=== PATIENT | male | born 1995 | race Caucasian/White ===

== ENCOUNTER 2017-08-18 13:52 | Emergency (ER) | payer OTHER ==
[~2017-08-18] VITALS: Ht 190.5 cm; Wt 86.4 kg
[2017-08-18 13:59] VITALS: TEMP 37.1; Ht 190.5 cm; Wt 86.4 kg
--- NOTE | 2017-08-18 14:23 | EMERGENCY ROOM VISIT NOTE ---
History First contact with patient: 14:03 Chief Complaint: CHEST INJURY Stated Complaint: DULL/SHARP CHEST PAIN History of Present Illness The patient is a 22 year old male who presents to the Emergency Room with complaints of chest pain. 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 He was playing handball today and during one of his shots someone made accidental contact with center of his chest. He states that he was able to complete playing the game, but progressively as time went on he began noticing increasing discomfort in his chest. Is complaining of 9/10 dull aching pain in the center of his chest that does not radiate to the back, jaw or arms. The pain is worsened by any deep breathing, and any type of movement. He notes shortness of breath only with deep breathing because of pain in the chest. He does not have any coughing or wheezing. He has not tried any Tylenol or Motrin. Otherwise the patient is been well. He does not have any gastrointestinal symptoms including nausea, vomiting, abdominal pain, diarrhea or constipation. He denies any urinary symptoms including dysuria or urinary frequency. He has not had any fevers chills or night sweats. Review of Systems A 10 point review of systems was negative unless stated above. Past Medical/Surgical History No know medical conditions Family History No known family history Social History Smoking Status: Never Smoker Smokeless Tobacco Use: No Alcohol Use: occasionally Drug Use: none Housing Status: lives with roommate Occupation Status: student ([place] [employer]) Current/Historical Medications No Active Prescriptions or Reported Meds Allergies No known allergies Physical Exam Vital Signs Date Time Temp Pulse Resp B/P (MAP) Pulse Ox O2 Delivery O2 Flow Rate FiO2 08/18/17 15:28 75 16 127/72 98 Room Air 08/18/17 14:40 76 08/18/17 13:59 37.1 87 20 122/71 97 Room Air Pain Rating (0-10): 9 Physical Exam Constitutional: Vital signs as above were reviewed. Eyes: Pupils equal, round, and reactive to light. Extraocular muscles are intact. No proptosis. No photophobia. ENT: Mucous membranes are moist. Oropharynx is clear. No sinus tenderness. Cardiovascular: Heart with a regular rate and rhythm. No pedal edema appreciated. Midsternal chest discomfort to palpation Point tenderness to the left pectoral muscle. No subcutaneous cutaneous crepitus or subcutaneous emphysema There is no evidence of flail chest Respiratory: Lungs clear to auscultation bilaterally. No wheezes, rales, or rhonchi appreciated. No accessory muscle use. No retractions. No increased work of breathing. GI: Abdomen soft, nontender, nondistended. Normal active bowel sounds. No abdominal hernias appreciated. No rebound. No guarding. : No CVA tenderness appreciated. Musculoskeletal: No midline cervical or vertebral tenderness. No gross deformities. No bony tenderness. No calf swelling or tenderness. No other musculoskeletal injuries noted Integumentary: Warm, dry, no rashes appreciated. Neurological: Patient awake, alert, and oriented x 3. Lymph: No cervical lymphadenopathy appreciated. Medical Decision & Procedures ER Provider Diagnostic Interpretation: SINGLE VIEW CHEST CLINICAL HISTORY: Atypical chest pain. FINDINGS: An AP, portable, upright chest radiograph is obtained. No prior studies are available for comparison at the time of dictation. The examination is degraded by portable technique and patient rotation. The cardiomediastinal silhouette is unremarkable. The lungs and pleural spaces are clear. No pneumothorax is seen. The bony thorax is grossly intact. IMPRESSION: No active disease in the chest. Electronically signed by: Camilo Horn M.D. 08/18/2017 2:44 PM Dictated Date/Time: 08/18/2017 2:43 PM The status of this report is Signed. Draft = Not yet reviewed or approved by Radiologist. Signed = Reviewed and approved by Radiologist. CT SCAN OF THE CHEST WITH IV CONTRAST CLINICAL HISTORY: Atypical chest pain. Chest injury. COMPARISON STUDY: Chest x-ray dated 08/18/2017. TECHNIQUE: Following the IV administration of 89 cc of Optiray 320, CT scan of the thorax was performed from the thoracic inlet to the upper abdomen. Images are reviewed in the axial, sagittal, and coronal planes. IV contrast was administered without complication. A dose lowering technique was utilized adhering to the principles of ALARA. CT DOSE: 250.31 mGy.cm FINDINGS: Thyroid: Imaged portions of the thyroid gland are normal in size and attenuation. Thoracic aorta: The thoracic aorta is normal in caliber and demonstrates standard 3-vessel arch anatomy. No dissection is seen. Pulmonary vasculature: The pulmonary trunk is normal in caliber. There are no filling defects identified in the central pulmonary vessels to indicate pulmonary embolus. Note that this examination was not protocoled for evaluation of the pulmonary arteries. Heart: The heart is normal in size and configuration, and without pericardial effusion. Lungs and pleural spaces: The lungs and pleural spaces are clear. There is no pneumothorax. The trachea and central airways are patent Mediastinum: There is no mediastinal hematoma or lymphadenopathy. Lorena: Clear. Axillae: There is no axillary lymphadenopathy. Upper abdomen: Partially visualized upper abdominal viscera is within normal limits. Skeletal structures: The bony thorax appears intact. No lytic or blastic bony lesions are seen. IMPRESSION: 1. There is no acute posttraumatic intrathoracic abnormality. 2. The lungs are clear. Electronically signed by: Camilo Horn M.D. 08/18/2017 3:34 PM Dictated Date/Time: 08/18/2017 3:28 PM The status of this report is Signed. Draft = Not yet reviewed or approved by Radiologist. Signed = Reviewed and approved by Radiologist. Laboratory Results 08/18/17 14:40 08/18/17 14:40 Test 08/18/17 14:40 08/18/17 14:51 Red Blood Count 5.17 M/uL (4.7-6.1) Mean Corpuscular Volume 82.8 fL (80-100) Mean Corpuscular Hemoglobin 28.4 pg (25-34) Mean Corpuscular Hemoglobin Concent 34.3 g/dl (32-36) RDW Standard Deviation 39.0 fL (36.4-46.3) RDW Coefficient of Variation 13.0 % (11.5-14.5) Mean Platelet Volume 9.7 fL (7.4-10.4) Est Creatinine Clear Calc Drug Dose 139.7 ml/min Estimated GFR () 124.1 Estimated GFR (Non- 107.1 BUN/Creatinine Ratio 21.6 (10-20) Calcium Level 9.5 mg/dl (8.5-10.1) Total Creatine Kinase 130 U/L (39-308) Creatine Kinase MB 1.1 ng/ml (0.5-3.6) Creatine Kinase MB Ratio 0.8 (0-3.0) Troponin I < 0.015 ng/ml (0-0.045) Bedside Hemoglobin 14.6 g/dl (14.0-18.0) Bedside Hematocrit 43 % (42-52) Bedside Sodium 142 mEq/L (135-144) Bedside Potassium 4.1 mEq/L (3.3-5.0) Bedside Chloride 102 mEq/L (101-112) Bedside Total CO2 27 mEq/l (24-31) Anion Gap 18.0 mmol/L (16-25) Bedside Blood Urea Nitrogen 24 mg/dl (7-18) Bedside Creatinine 1.1 mg/dl (0.6-1.3) Bedside Glucose (other) 110 mg/dl (70-99) Bedside Ionized Calcium (Jacki) 1.27 mmol/l (1.12-1.32) Medications Administered Medications (Trade) Dose Ordered Sig/Vijaya Route Start Time Stop Time Status Last Admin Dose Admin Ketorolac Tromethamine (Toradol Inj) 30 mg NOW STAT IV 08/18/17 14:32 08/18/17 14:33 DC 08/18/17 14:32 30 MG Hydromorphone HCl (Dilaudid Inj) 1 mg NOW STAT IV 08/18/17 14:32 08/18/17 14:33 DC 08/18/17 14:32 1 MG Ondansetron HCl (Zofran Inj) 4 mg NOW STAT IV 08/18/17 14:32 08/18/17 14:33 DC 08/18/17 14:32 4 MG ED Course Patient is a 22-year-old male who sustained chest wall injury following an accident contact during sports. The concern in this Injury includes sternal fracture, rib fracture, pneumothorax , tension pneumothorax, cardiac contusion, commotio cordis. Chest x-ray was done which did not show any acute findings. CT scan did not show any bony abnormalities, intraparenchymal abnormalities, or intra-pleural abnormalities such as effusions or pneumothorax. Also elected to do a troponin to check for any cardiac damage. Fortunately the troponin was negative. We discussed with the patient the lab and imaging findings. Fortunately there is no concern at this point for cardiopulmonary injury. He most likely sustained uncomplicated soft tissue and cartilaginous injury and was advised that recovery would take up to 6 weeks. He was encouraged to manage pain with supportive measures such as Tylenol, Motrin and heat/cold packs. The patient was agreeable to this plan. The patient was advised to follow-up with his PCP in one week. The patient was discharged in stable condition and with instructions on signs and symptoms to monitor for which warrant return to the emergency department Medical Decision 14:05 - The patient was seen and evaluated by Dr. Luis E Canales MD [facility] 14:15 - Chest X-ray ordered 14:25 - Discussed with Dr. Benny Marques, ER attending physician CBC, istat, cardiac enzymes, cardiac enzymes, CT chest with IV contrast 14:30 - Zofran, Toradol and Dilaudid given to the patient 14:45 - EKG reviewed; no concerning findings 15:30 - CT chest reviewed; no acute findings of trauma noted 15:45 - Discussed findings of labs and CT with patient; recommend discharge home with supportive care Patient agreeable to discharge home Patient discharged with supportive care. Head Trauma GCS Score: 15 Medication Reconcilliation The patient does not take any medications currently Blood Pressure Screening Patient's blood pressure: Normal blood pressure Blood pressure disposition: Elevated BP felt to be situational Impression Primary Impression: Chest wall pain Departure Information Dispostion Home / Self-Care Condition GOOD Prescriptions No Active Prescriptions or Reported Meds Referrals No Doctor, Assigned (PCP) Patient Instructions My [facility] Additional Instructions You came to the emergency department after having chest pain from a handball injury. We checked a CT scan of the chest, a chest x-ray and did some blood work, all of which were fortunately negative. You can be discharged safely home back to the care of your family doctor. To treat her pain you can try taking Tylenol combined with a nonsteroidal medication (ex: Advil, Aleve, Motrin). Do not take multiple nonsteroidal medications. Please do not exceed that daily maximum of each medication that you take. You likely have some minor injuries to cartilage tissue on your chest. Please note that it can take several weeks for this to resolve completely If your symptoms fail to improve, acutely worsen, please seek medical attention immediately by either calling your primary care provider or going to your nearest emergency department. Otherwise, please see your primary care provider within 1 week to ensure that your symptoms continue to improve. It was a pleasure to be involved in your care and we wish you all the best.
[2017-08-18] MEDS ORDERED: ONDANSETRON INJ 2 MG/ML 2 ML VIAL IV STA (14:32)
[2017-08-18] MEDS ORDERED: KETOROLAC TROMETHAMINE 30 MG/ML VIAL IV STA (14:32)
[2017-08-18] MEDS ORDERED: HYDROmorphone INJ 1 MG/ML SYR IV STA (14:32)
[2017-08-18] MEDS ORDERED: OPTIRAY 320 IV PRN (14:45)
--- NOTE | 2017-08-18 14:45 | DIAGNOSTIC IMAGING REPORT ---
SINGLE VIEW CHEST CLINICAL HISTORY: Atypical chest pain. FINDINGS: An AP, portable, upright chest radiograph is obtained. No prior studies are available for comparison at the time of dictation. The examination is degraded by portable technique and patient rotation. The cardiomediastinal silhouette is unremarkable. The lungs and pleural spaces are clear. No pneumothorax is seen. The bony thorax is grossly intact. IMPRESSION: No active disease in the chest. Electronically signed by: Camilo Horn M.D. 08/18/2017 2:44 PM Dictated Date/Time: 08/18/2017 2:43 PM
[2017-08-18 14:51] LABS: HEMATOCRIT 42.8 % (42-52); MEAN CELL VOLUME 82.8 fL (80-100); MEAN CORPUSCULAR HEMOGLOBIN 28.4 pg (25-34); MEAN CORPUSCULAR HGB CONC 34.3 g/dl (32-36); MEAN PLATELET VOLUME 9.7 fL (7.4-10.4); PLATELET COUNT 204 K/uL (130-400); RED BLOOD COUNT 5.17 M/uL (4.7-6.1); WHITE BLOOD COUNT 13.24 K/uL (4.8-10.8)
--- NOTE | 2017-08-18 14:52 | EMERGENCY ROOM VISIT NOTE ---
ED Visit Note First contact with patient: 14:03 Resident Physician Supervision Note: I interviewed and examined the patient. Discussed with Dr. Canales and agree with findings and plan as documented in the note. Documented By: Benny Marques Current/Historical Medications No Active Prescriptions or Reported Meds Allergies Coded Allergies: Amoxicillin (Unverified Allergy, Unknown, UNKNOWN, 08/18/17) Clarithromycin (Unverified Allergy, Unknown, UNKNOWN, 08/18/17) Clavulanic Acid (Unverified Allergy, Unknown, UNKNOWN, 08/18/17) Vital Signs Date Time Temp Pulse Resp B/P (MAP) Pulse Ox O2 Delivery O2 Flow Rate FiO2 08/18/17 13:59 37.1 87 20 122/71 97 Room Air Laboratory Results Test 08/18/17 14:23 08/18/17 14:40 Creatine Kinase MB Ratio (0-3.0) Red Blood Count 5.17 M/uL (4.7-6.1) Mean Corpuscular Volume 82.8 fL (80-100) Mean Corpuscular Hemoglobin 28.4 pg (25-34) Mean Corpuscular Hemoglobin Concent 34.3 g/dl (32-36) RDW Standard Deviation 39.0 fL (36.4-46.3) RDW Coefficient of Variation 13.0 % (11.5-14.5) Mean Platelet Volume 9.7 fL (7.4-10.4) Medications Administered Medications (Trade) Dose Ordered Sig/Vijaya Route Start Time Stop Time Status Last Admin Dose Admin Ketorolac Tromethamine (Toradol Inj) 30 mg NOW STAT IV 08/18/17 14:32 08/18/17 14:33 DC 08/18/17 14:32 30 MG Hydromorphone HCl (Dilaudid Inj) 1 mg NOW STAT IV 08/18/17 14:32 08/18/17 14:33 DC 08/18/17 14:32 1 MG Ondansetron HCl (Zofran Inj) 4 mg NOW STAT IV 08/18/17 14:32 08/18/17 14:33 DC 08/18/17 14:32 4 MG Departure Information Dispostion Home / Self-Care Condition GOOD Prescriptions No Active Prescriptions or Reported Meds Referrals No Doctor, Assigned (PCP) Patient Instructions My [facility]
[2017-08-18 15:01] LABS: ISTAT CREATININE 1.1 mg/dl (0.6-1.3); ISTAT HEMOGLOBIN 14.6 g/dl (14.0-18.0); ISTAT IONIZED CALCIUM 1.27 mmol/l (1.12-1.32)
[2017-08-18 15:09] LABS: BLOOD UREA NITROGEN 22 mg/dl (7-18); BUN/CREATININE RATIO 21.6 (10-20); CALCIUM 9.5 mg/dl (8.5-10.1); CARBON DIOXIDE 29 mmol/L (21-32); CHLORIDE 107 mmol/L (98-107); GLUCOSE 111 mg/dl (70-99); SODIUM 141 mmol/L (136-145)
[2017-08-18 15:14] LABS: CKMB/CK RATIO 0.8 (0-3.0)
[2017-08-18 15:28] VITALS: BP 127/72; PULSE 75; O2SAT 98
--- NOTE | 2017-08-18 15:36 | DIAGNOSTIC IMAGING REPORT ---
CT SCAN OF THE CHEST WITH IV CONTRAST CLINICAL HISTORY: Atypical chest pain. Chest injury. COMPARISON STUDY: Chest x-ray dated 08/18/2017. TECHNIQUE: Following the IV administration of 89 cc of Optiray 320, CT scan of the thorax was performed from the thoracic inlet to the upper abdomen. Images are reviewed in the axial, sagittal, and coronal planes. IV contrast was administered without complication. A dose lowering technique was utilized adhering to the principles of ALARA. CT DOSE: 250.31 mGy.cm FINDINGS: Thyroid: Imaged portions of the thyroid gland are normal in size and attenuation. Thoracic aorta: The thoracic aorta is normal in caliber and demonstrates standard 3-vessel arch anatomy. No dissection is seen. Pulmonary vasculature: The pulmonary trunk is normal in caliber. There are no filling defects identified in the central pulmonary vessels to indicate pulmonary embolus. Note that this examination was not protocoled for evaluation of the pulmonary arteries. Heart: The heart is normal in size and configuration, and without pericardial effusion. Lungs and pleural spaces: The lungs and pleural spaces are clear. There is no pneumothorax. The trachea and central airways are patent Mediastinum: There is no mediastinal hematoma or lymphadenopathy. Lorena: Clear. Axillae: There is no axillary lymphadenopathy. Upper abdomen: Partially visualized upper abdominal viscera is within normal limits. Skeletal structures: The bony thorax appears intact. No lytic or blastic bony lesions are seen. IMPRESSION: 1. There is no acute posttraumatic intrathoracic abnormality. 2. The lungs are clear. Electronically signed by: Camilo Horn M.D. 08/18/2017 3:34 PM Dictated Date/Time: 08/18/2017 3:28 PM
== END 2017-08-18 16:02 | disposition home or self-care (01) ==
LOC: C.EDB 13:54 → C.EDC 16:02
DX: R07.89 Other chest pain (principal)